=== PATIENT | male | born 1945 | race Caucasian/White ===

== ENCOUNTER → 2017-09-01 | Outpatient (CLI) | payer MEDICARE, OTHER ==
[2017-09-01 12:58] LABS: ADD MAN DIFF? NO
[2017-09-01 13:07] LABS: BASO % 1 % (0-3); EOS # 0.1 x10^3/uL (0.0-0.7); EOS % 2 % (0-3); HEMATOCRIT 43.1 % (39.0-53.0); HEMOGLOBIN 14.6 g/dL (13.0-17.5); LYMPH # 0.9 x10^3/uL (1.0-4.8); LYMPH % 15 % (24-48); MEAN CORPUSCULAR HEMOGLOBIN 31 pg (25-35); MEAN CORPUSCULAR HGB CONC 34 g/dL (31-37); MEAN CORPUSCULAR VOLUME 93 fL (79-100); MONO # 0.5 x10^3/uL (0.0-1.1); MONO % 9 % (0-9); NEUT # 4.4 x10^3uL (1.8-7.7); NEUT % 75 % (31-73); PLATELET COUNT 135 x10^3/uL (140-400); RED BLOOD COUNT 4.66 x10^6/uL (4.30-5.70); RED CELL DISTRIBUTION WIDTH 13.2 % (11.5-14.5); WHITE BLOOD COUNT 5.9 x10^3/uL (4.0-11.0)
[2017-09-01 13:32] LABS: ALBUMIN 3.6 g/dL (3.4-5.0); ALBUMIN/GLOBULIN RATIO 1.1 (1.0-1.7); ALK PHOS 70 U/L (46-116); ALT (SGPT) 31 U/L (16-63); ANION GAP 9 (6-14); AST (SGOT) 23 U/L (15-37); BLOOD UREA NITROGEN 25 mg/dL (8-26); BUN/CREATININE RATIO 28 (6-20); CALCIUM 8.6 mg/dL (8.5-10.1); CARBON DIOXIDE 28 mmol/L (21-32); CHLORIDE 104 mmol/L (98-107); CREATININE 0.9 mg/dL (0.7-1.3); GFR 82.9; GLUCOSE 123 mg/dL (70-99); POTASSIUM 4.2 mmol/L (3.5-5.1); SODIUM 141 mmol/L (136-145); TOTAL BILIRUBIN 0.5 mg/dL (0.2-1.0)
[2017-09-01 20:11] LABS: MRSA BY PCR Negative (Negative)
== END | disposition home or self-care (01) ==
LOC: SURGPAT 12:24
DX: Z01.818 Encounter for other preprocedural examination (principal); M48.061 Spinal stenosis, lumbar region without neurogenic claudication; M54.16 Radiculopathy, lumbar region
CPT/HCPCS: 36415; 80053; 85025; 87641

== ENCOUNTER 2017-09-07 07:07 | Day surgery (SDC) | payer MEDICARE, OTHER ==
[~2017-09-07 07:07] MED LIST: HYDROmorphone 2 MG/ML VIAL IV; LIDOCAINE 1% PF 2 ML VIAL. ID; MORPHINE SULFATE 2 MG/ML DISP.SYRIN. IV; ONDANSETRON PF 4 MG/2 ML VIAL. IV; PROCHLORPERAZINE 10 MG/2 ML VIAL. IV; fentaNYL PF VIAL 100 MCG/2 ML VIAL IV
[2017-09-07] MEDS: IV RINGERS,LACTATED 1000ML 1,000 ML IV ×2 (07:48)
[2017-09-07] MEDS ORDERED: PROPOFOL 20 ML IV ×2 (08:08)
[2017-09-07] MEDS ORDERED: ONDANSETRON PF 4 MG/2 ML VIAL. ×2 (08:08)
[2017-09-07] MEDS ORDERED: LIDOCAINE 2% PF Vial for OR 5 ML VIAL. ×2 (08:08)
[2017-09-07] MEDS ORDERED: PROPOFOL 50 ML IV ×4 (08:08→10:10)
[2017-09-07] MEDS ORDERED: DEXAMETHASONE SOD PHOS 20 MG/5 ML VIAL. ×2 (08:08)
[2017-09-07] MEDS ORDERED: REMIFENTANIL 2 MG VIAL. IV ×2 (08:09)
[2017-09-07] MEDS ORDERED: MINERAL OIL/PETROLATUM,WHITE OPHTH OINT 3.5GM TUBE. ×2 (08:09)
[2017-09-07] MEDS ORDERED: 0.9 % SODIUM CHLORIDE 50 ML VIAL. IJ ×2 (08:09)
[2017-09-07] MEDS ORDERED: ROCURONIUM 50 MG/5 ML VIAL. ×2 (08:09)
[2017-09-07] MEDS ORDERED: PHENYLEPHRINE 10 MG/ML VIAL. ×2 (08:09)
[2017-09-07] MEDS ORDERED: GLYCOPYRROLATE 1 MG/5 ML VIAL. ×2 (08:45)
[2017-09-07] MEDS: BUPIVAC MPF-EPI 0.75%-1:200000 30 ML VIAL. ×2 (09:33)
[2017-09-07] MEDS: KETOROLAC 60 MG/2 ML INJ FOR OR. ×2 (09:33)
[2017-09-07] MEDS: GELATIN SPONGE SIZE 100. ×2 (09:33)
[2017-09-07] MEDS: THROMBIN TOPICAL 20,000 UNIT SPRAY.SYRN KIT TP ×2 (09:33)
[2017-09-07] MEDS: BACITRACIN 50,000 UNIT in IV NORMAL SALINE 1000ML BAG 1,000 ML IRR (09:33)
[2017-09-07] MEDS ORDERED: DESFLURANE > 120 MINUTES IH ×2 (09:39)
[2017-09-07] MEDS ORDERED: fentaNYL PF VIAL 100 MCG/2 ML VIAL ×2 (11:42)
[2017-09-07] MEDS ORDERED: MORPHINE SULFATE 2 MG/ML DISP.SYRIN. ×2 (11:42)
== END 2017-09-07 13:57 | disposition home or self-care (01) ==
LOC: SURG 07:07
DX: M54.16 Radiculopathy, lumbar region (principal); M48.061 Spinal stenosis, lumbar region without neurogenic claudication; F41.9 Anxiety disorder, unspecified; Z87.39 Personal history of other diseases of the musculoskeletal system and connective tissue; Z98.890 Other specified postprocedural states
CPT/HCPCS: 63030; 76000; 88304; 97162-GP; 97530-GP; G8978-CJ-GP; G8979-CJ-GP; G8980-CJ-GP; J0690; J1100; J1885; J2270; J2405; J2704; J3010; J3490; J7030; J7120